=== PATIENT | female | born 2000 | race African-American/Black ===

== ENCOUNTER 2022-07-05 10:04 | Emergency (ER) | payer MEDICAID, OTHER ==
[2022-07-05 10:45] LABS: Bilirubin Neg (Negative); Blood, Urine Negative (Negative); Clarity Slightly Cloudy (Clear); Glucose, Urine (Dipstick) Normal (Negative); Ketone, Urine Negative (Negative); Leukocyte 100 (Negative); Nitrite Negative (Negative); Protein, Urine (Dipstick) Negative (Neg-Trace); Specific Gravity, Urine 1.015 (1.005-1.030); Urobilinogen Normal mg/dL (Less than 2)
[2022-07-05 10:55] LABS: RBC/HPF 0-3 HPF (0-3); Squamous Epithelial 21-50 HPF (0-3)
[2022-07-05 10:56] LABS: Bacteria/HPF 2+ HPF (None Seen)
[2022-07-05 11:38] LABS: SARS-CoV-2 NAA Rapid Test Not Detected (NotDetected)
== END 2022-07-05 13:00 | disposition home or self-care (01) ==
LOC: CSHERS 10:04
DX: O99.891 Other specified diseases and conditions complicating pregnancy (principal); R82.71 Bacteriuria; Z20.822 Contact with and (suspected) exposure to COVID-19
CPT/HCPCS: 76815; 81003; 81015

== ENCOUNTER 2022-10-26 09:45 | Day surgery (SDC) | payer MEDICAID ==
[2022-10-26] MEDS ORDERED: Lidocaine 1% (PF) 30 ML VIAL ONE (10:10)
[2022-10-26] MEDS ORDERED: Ondansetron PF 4 MG/2 ML Vial ONE (10:10)
[2022-10-26 13:01] VITALS: BMI 37.4
[2022-10-26] MEDS ORDERED: hydrALAZINE 20 MG/ML VIAL SLOW IVP PRN ×2 (13:24→16:49)
[2022-10-26] MEDS ORDERED: Lactated Ringer's 1,000 ML IV SCH (13:30)
[2022-10-26 14:09] LABS: #Monocytes 0.6 10x3/uL (0.0-1.1); #Neutrophils 10.4 10x3/uL (1.5-8.4); %Basophils 0.2 % (0.0-2.0); %Eosinophils 0.2 % (0.0-6.0); %Lymphocytes 10.3 % (18.0-47.0); %Monocytes 4.7 % (0.0-10.0); %Neutrophils 83.9 % (40.0-75.0); Hemoglobin 9.9 g/dL (12.0-15.5); Mean Corpuscular HGB CONC 32.8 g/dL (32.0-36.0); Mean Corpuscular Hemoglobin 28.6 pg (27.0-33.0); Mean Corpuscular Volume 87.3 fl (81.6-98.3); Mean Platelet Volume 10.3 fl (7.4-10.4); Platelet Count 190 10x3/uL (150-450); RBC Distribution Width 13.2 % (11.5-14.5); Red Blood Cell (RBC) Count 3.46 10x6/uL (3.90-5.03); White Blood Cell (WBC) Count 12.4 10x3/uL (3.5-10.5)
[2022-10-26] MEDS ORDERED: Terbutaline Sulfate 1 MG/ML VIAL SC SCH (14:15)
[2022-10-26 14:26] LABS: Bilirubin Neg (Negative); Blood, Urine Negative (Negative); Glucose, Urine (Dipstick) Normal (Negative); Ketone, Urine Negative (Negative); Leukocyte 100 (Negative); Nitrite Negative (Negative); Protein, Urine (Dipstick) 100 mg/dl (Neg-Trace); Urobilinogen Normal mg/dL (Less than 2)
[2022-10-26 14:27] LABS: Clarity Slightly Cloudy (Clear)
[2022-10-26 14:29] LABS: ALT (SGPT) 7 U/L (8-55); AST (SGOT) 10 U/L (5-34); Albumin 3.4 g/dL (3.5-5.0); Alkaline Phosphatase 48 U/L (40-110); Anion Gap 12 mmol/L (10-20); BUN (Urea Nitrogen) 7 mg/dL (7.0-18.7); Bilirubin, Total 0.3 mg/dL (0.2-1.2); Calc. Creatinine Clearance 229 mL/min (70-130); Calcium 8.5 mg/dL (7.8-10.44); Carbon Dioxide 22 mmol/L (22-29); Chloride 106 mmol/L (98-107); Estimated GFR 129; Glucose 73 mg/dL (70-105); Potassium 3.8 mmol/L (3.5-5.1); Protein, Total 6.4 g/dL (6.0-8.3); Sodium 136 mmol/L (136-145)
[2022-10-26 14:33] LABS: Amphetamine Not Detected (NotDetected); Barbiturates Screen Not Detected (NotDetected); Benzodiazepine Screen Not Detected (NotDetected); Cocaine Metabolite Screen Not Detected (NotDetected); Methadone Not Detected (NotDetected); Methamphetamine Not Detected (NotDetected); Opiate Screen Not Detected (NotDetected); Oxycodone Screen Not Detected (NotDetected); Phencyclidine (PCP) Not Detected (NotDetected); THC/Cannabinoid Screen Detected (NotDetected); Tricyclic Screen Not Detected (NotDetected)
[2022-10-26 14:35] LABS: Bacteria/HPF 1+ HPF (None Seen); CAUTI Indications for Culture Pregnancy; RBC/HPF None Seen HPF (0-3); Yeast-Budding Rare HPF (None Seen)
[2022-10-26 14:36] LABS: Urine Culture Reflex Yes Yes
[2022-10-26] MEDS ORDERED: CEFAZOLIN 1 GM in Sodium Chloride 0.9% 100 ML IVPB SCH (15:45)
[2022-10-26] MEDS ORDERED: Lorazepam 2 MG/ML VIAL SLOW IVP PRN (16:49)
[2022-10-26] MEDS ORDERED: Labetalol HCl 100 MG/20 ML VIAL SLOW IVP PRN ×3 (16:49)
[2022-10-26] MEDS ORDERED: Calcium Gluc 4.6 MEQ/10 ML (100 MG/ML) SLOW IVP PRN (16:49)
== END 2022-10-26 16:40 | disposition home or self-care (01) ==
LOC: CSHERS 09:45 → CSHLD/OP 12:37
PROVIDERS: ATTEND Obstetrics & Gynecology
DX: O47.1 False labor at or after 37 completed weeks of gestation (principal); O26.893 Other specified pregnancy related conditions, third trimester; O9A.213 Injury, poisoning and certain other consequences of external causes complicating pregnancy, third trimester; S61.411A Laceration without foreign body of right hand, initial encounter; R10.9 Unspecified abdominal pain; O23.43 Unspecified infection of urinary tract in pregnancy, third trimester; N39.0 Urinary tract infection, site not specified; O98.813 Other maternal infectious and parasitic diseases complicating pregnancy, third trimester; B37.31 Acute candidiasis of vulva and vagina; Z79.899 Other long term (current) drug therapy; W25.XXXA Contact with sharp glass, initial encounter; Z3A.38 38 weeks gestation of pregnancy
CPT/HCPCS: 76815; 80053; 80306; 81001; 85025; 87086; 96360; 96361; 96374; 99283; J0690; J2001; J2405; J3490

== ENCOUNTER 2022-11-28 08:55 | Inpatient (IN) | payer MEDICAID ==
[2022-11-28 09:20] VITALS: BMI 34.4
[2022-11-28] MEDS ORDERED: Ondansetron PF 4 MG/2 ML Vial IVP PRN (11:57)
[2022-11-28] MEDS ORDERED: Misoprostol 200 MCG TAB PR PRN (11:57)
[2022-11-28] MEDS ORDERED: hydrALAZINE 20 MG/ML VIAL SLOW IVP PRN ×2 (11:57→21:08)
[2022-11-28] MEDS ORDERED: Ibuprofen 800 MG TAB PO PRN (11:57)
[2022-11-28] MEDS ORDERED: Lidocaine 1% (PF) 30 ML VIAL SC PRN (11:57)
[2022-11-28] MEDS ORDERED: Methylergonovine 0.2 MG/ML VIAL IM PRN (11:57)
[2022-11-28] MEDS ORDERED: Tranexamic Acid 1,000 MG/10 ML VIAL IVP PRN (11:57)
[2022-11-28] MEDS ORDERED: Promethazine HCl 25 MG/ML VIAL IM PRN (11:57)
[2022-11-28] MEDS ORDERED: Acetaminophen 500 MG TAB PO PRN (11:57)
[2022-11-28] MEDS ORDERED: Carboprost 250 MCG/ML AMP IM PRN (11:57)
[2022-11-28] MEDS ORDERED: Lactated Ringer's 1,000 ML IV SCH (12:00)
[2022-11-28] MEDS ORDERED: NS w/ Oxytocin 30 units 500 ML IV SCH (12:00)
[2022-11-28 12:29] LABS: Amphetamine Not Detected (NotDetected); Barbiturates Screen Not Detected (NotDetected); Benzodiazepine Screen Not Detected (NotDetected); Cocaine Metabolite Screen Not Detected (NotDetected); Methadone Not Detected (NotDetected); Methamphetamine Not Detected (NotDetected); Opiate Screen Not Detected (NotDetected); Oxycodone Screen Not Detected (NotDetected); Phencyclidine (PCP) Not Detected (NotDetected); THC/Cannabinoid Screen Detected (NotDetected); Tricyclic Screen Not Detected (NotDetected)
[2022-11-28 13:09] LABS: #Eosinphils 0.1 10x3/uL (0.0-0.5); #Monocytes 0.8 10x3/uL (0.0-1.1); %Basophils 0.1 % (0.0-2.0); %Eosinophils 0.4 % (0.0-6.0); %Lymphocytes 11.6 % (18.0-47.0); %Monocytes 5.6 % (0.0-10.0); %Neutrophils 81.6 % (40.0-75.0); Hemoglobin 11.2 g/dL (12.0-15.5); Mean Corpuscular HGB CONC 32.4 g/dL (32.0-36.0); Mean Corpuscular Hemoglobin 27.9 pg (27.0-33.0); Mean Corpuscular Volume 86.1 fl (81.6-98.3); Mean Platelet Volume 10.6 fl (7.4-10.4); Platelet Count 201 10x3/uL (150-450); RBC Distribution Width 13.9 % (11.5-14.5); Red Blood Cell (RBC) Count 4.02 10x6/uL (3.90-5.03); White Blood Cell (WBC) Count 14.7 10x3/uL (3.5-10.5)
[2022-11-28 13:51] LABS: HBSAg Index 0.13 S/CO (0-0.99); HIV (1/2) Antibody/Antigen Non-Reactive (NonReactive); HIV 1/2 INDEX 0.12 S/CO (<1.00); Hep B Surf Ag - L&D Non-Reactive S/CO (NonReactive)
[2022-11-28 13:52] LABS: Syphilis Antibody Nonreactive (Nonreactive); Syphilis Antibody Index 0.04 S/CO (<1.00 Non-Reactive)
[2022-11-28 16:30] LABS: Hemoglobin 10.8 g/dL (12.0-15.5); Mean Corpuscular HGB CONC 32.5 g/dL (32.0-36.0); Mean Corpuscular Hemoglobin 28.3 pg (27.0-33.0); Mean Corpuscular Volume 86.9 fl (81.6-98.3); Mean Platelet Volume 10.1 fl (7.4-10.4); Platelet Count 204 10x3/uL (150-450); Red Blood Cell (RBC) Count 3.82 10x6/uL (3.90-5.03); White Blood Cell (WBC) Count 14.2 10x3/uL (3.5-10.5)
[2022-11-28 16:48] LABS: D-Dimer Test 0.89 mg/L FEU (0.19-0.50); PTT 25.4 sec (22.0-33.0); Prothrombin Time 10.7 sec (9.5-12.1)
[2022-11-28] MEDS ORDERED: Methylergonovine 0.2 MG/ML VIAL ONE (20:20)
[2022-11-28] MEDS ORDERED: Carboprost 250 MCG/ML AMP ONE (20:20)
[2022-11-28] MEDS ORDERED: Misoprostol 200 MCG TAB ONE (20:20)
[2022-11-28] MEDS ORDERED: Bisacodyl 10 MG SUPP PR PRN (21:08)
[2022-11-28] MEDS ORDERED: Lanolin Ointment 7 GM TUBE TOP PRN (21:08)
[2022-11-28] MEDS ORDERED: Boostrix 0.5 ML (Tdap) VIAL (>/=7 yrs of age) IM ONE (21:08)
[2022-11-28] MEDS ORDERED: Preparation H Ointment 28 GM TUBE PR PRN (21:08)
[2022-11-28] MEDS ORDERED: diphenhydrAMINE 25 MG CAP PO PRN (21:08)
[2022-11-28] MEDS ORDERED: Zolpidem Tartrate 5 MG TAB PO PRN (21:08)
[2022-11-28] MEDS ORDERED: Benzocaine-Menthol 82.5 ML CAN TOP PRN (21:08)
[2022-11-28] MEDS ORDERED: Milk Of Magnesia 30 ML UDCUP PO PRN (21:08)
[2022-11-28] MEDS ORDERED: fentaNYL 50 mcg/mL 1 mL Vial SLOW IVP SCH (21:15)
[2022-11-29 04:47] LABS: Hemoglobin 9.5 g/dL (12.0-15.5)
[2022-11-29] MEDS: Ferrous Sulfate 325 MG TAB PO SCH ×2 (08:10→16:45)
[2022-11-29] MEDS: Prenatal Vitamin 1 TAB PO SCH (08:10)
[2022-11-29] MEDS: Docusate 100 MG CAP PO SCH ×2 (08:10→21:46)
[2022-11-29] MEDS: HYDROcodone/Acetaminophen 5/325 mg Tablet PO PRN (13:14)
[2022-11-30] MEDS: HYDROcodone/Acetaminophen 5/325 mg Tablet PO PRN (05:35)
[2022-11-30 07:34] LABS: Hemoglobin 9.8 g/dL (12.0-15.5); Mean Corpuscular HGB CONC 32.1 g/dL (32.0-36.0); Mean Corpuscular Hemoglobin 28.2 pg (27.0-33.0); Mean Corpuscular Volume 87.9 fl (81.6-98.3); Mean Platelet Volume 10.3 fl (7.4-10.4); Platelet Count 195 10x3/uL (150-450); RBC Distribution Width 14.1 % (11.5-14.5); Red Blood Cell (RBC) Count 3.47 10x6/uL (3.90-5.03); White Blood Cell (WBC) Count 10.2 10x3/uL (3.5-10.5)
[2022-11-30] MEDS: Ferrous Sulfate 325 MG TAB PO SCH (08:12)
[2022-11-30] MEDS: Prenatal Vitamin 1 TAB PO SCH (08:12)
[2022-11-30] MEDS: Docusate 100 MG CAP PO SCH (08:12)
[2022-11-30 08:34] VITALS: BP 116/56; TEMP 97.6
[2022-11-30 14:49] LABS: Group B Streptococcus by PCR Not Detected (NotDetected)
[2022-11-30 15:23] LABS: GC N.gonorrhoeae PCR,UrineVOID *Indeterminate (NotDetected)
[2022-11-30 15:24] LABS: Chlam.trachomatis by PCR,Urine *Indeterminate (NotDetected)
== END 2022-11-30 15:10 | disposition home or self-care (01) | DRG 806 ==
LOC: CSHLD/OP 08:55 → CSHLD 11:57 → CSHPP 23:40
PROVIDERS: ADMIT Obstetrics & Gynecology; ATTEND Obstetrics & Gynecology
PROC: 10E0XZZ Delivery of Products of Conception, External Approach (ICD-10-PCS; principal; 2022-11-28)
PROC: 10907ZC Drainage of Amniotic Fluid, Therapeutic from Products of Conception, Via Natural or Artificial Opening (ICD-10-PCS; 2022-11-28)
DX: O45.93 Premature separation of placenta, unspecified, third trimester (principal); Z37.0 Single live birth; Z3A.39 39 weeks gestation of pregnancy; D62 Acute posthemorrhagic anemia; O99.324 Drug use complicating childbirth; F12.90 Cannabis use, unspecified, uncomplicated; O90.81 Anemia of the puerperium
CPT/HCPCS: 36415; 51701; 80306; 85014; 85018; 85025; 85027; 85049; 85300; 85362; 85379; 85384; 85610; 85730; 86762; 86780; 86850; 86900; 86901; 87070; 87077; 87186; 87205; 87491; 87591; 87653; 99285; J3010